=== PATIENT | male | born 1995 | race Caucasian/White ===

== ENCOUNTER 2017-01-18 22:19 | Emergency (ER) | payer SELFPAY ==
[2017-01-19 01:30] VITALS: BP 126/71
== END 2017-01-19 01:30 | disposition home or self-care (01) ==
LOC: ED 22:19
DX: J02.9 Acute pharyngitis, unspecified (principal)
CPT/HCPCS: J0561; J1100; J1885

== ENCOUNTER 2017-01-20 20:05 | Emergency (ER) | payer MEDICAID ==
[2017-01-20 23:16] VITALS: BP 120/70
== END 2017-01-20 23:16 | disposition home or self-care (01) ==
LOC: ED 20:05
DX: J02.9 Acute pharyngitis, unspecified (principal)
CPT/HCPCS: J0696; Q0162